=== PATIENT | male | born 1955 | race Caucasian/White ===

== ENCOUNTER 2018-07-25 08:33 | Observation (INO) | payer BC ==
[~2018-07-25] VITALS: Ht 167.6 cm; Wt 93.3 kg
[2018-07-25] MEDS ORDERED: SOD CHLORIDE 0.9% 500 ML IV STA (08:35)
--- NOTE | 2018-07-25 09:45 | ERD ---
ER Documentation Chief Complaint Chief Complaint FELT WEAK AND FAINT WHILE AT [employer]. NEAR SYNCOPE HPI 62-year-old male presents by paramedics for evaluation of a syncopal episode. Patient states he was in his usual state of health getting over a "flu" this week. While at [employer], he felt flushed warm and lightheaded and then passed out. He reports no chest pain palpitations or shortness of breath. He reports no headache, focal weakness or numbness. 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 Pre-hospital vital signs were reviewed. Pre-hospital diagnostic tests were reviewed. Upon arrival, patient has no complaints at this time. ROS All systems reviewed and are negative except as per history of present illness. Medications Home Meds Reported Medications Multivitamins* (Theragran*) 1 Tab Tab, 1 TAB PO DAILY, TAB 07/25/18 Lisinopril* (Lisinopril*) 2.5 Mg Tablet, 2.5 MG PO DAILY, #30 TAB 07/25/18 Atorvastatin* (Atorvastatin*) 80 Mg Tablet, 80 MG PO QHS, #30 TAB 07/25/18 Cholecalciferol* (Vitamin D3*) 1,000 Unit Tablet, 1000 UNIT PO DAILY, TAB 07/25/18 Aspirin (Low Dose Aspirin) 81 Mg Tablet.dr, 81 MG PO DAILY, #30 TAB 07/25/18 Carvedilol* (Coreg*) 3.125 Mg Tablet, 3.125 MG PO BID, #60 TAB 07/25/18 Ticagrelor* (Brilinta*) 90 Mg Tablet, 90 MG PO Q12, TAB 07/25/18 Allergies Allergies: Coded Allergies: No Known Allergy (Unverified , 07/25/18) FmHx Noncontributory for chief complaint Physical Exam Vitals Vital Signs Date Temp Pulse Resp B/P (MAP) Pulse Ox O2 O2 Flow FiO2 Time Delivery Rate 07/25/18 97.8 78 18 135/100 98 08:41 (112) Physical Exam GENERAL: The patient is well developed and appropriate for usual state of health in no apparent distress HEENT: Pupils equal, round, and reactive to light. EOMI. There is no scleral icterus. NECK: C-spine is soft and supple, there is no meningismus. There is no cervical lymphadenopathy. LUNGS: Clear to auscultation bilaterally. There are no rales, wheezes or rhonchi. HEART: Regular rate and rhythm, no murmurs, clicks, rubs or gallops. ABDOMEN: Soft, non-tender, non-distended. There are bowel sounds in all four quadrants. No rebound or guarding. EXTREMITIES: There is no peripheral cyanosis or edema. No focal swelling or erythema. NEURO: The patient moves all four extremities with 5/5 strength. Cranial nerves II - XII are intact. Normal gait. Alert and oriented SKIN: There is no apparent rash or petechiae. HEME/LYMPHATIC: There is no evidence of excessive bruising or lymphedema. PSYCHIATRIC: The patient does not appear anxious or depressed. Result Diagram: 07/25/18 0850 07/25/18 0850 Results 24 hrs Laboratory Tests Test 07/25/18 08:50 07/25/18 09:22 White Blood Count 5.9 10^3/ul Red Blood Count 5.67 10^6/ul Hemoglobin 15.8 g/dl Hematocrit 48.2 % Mean Corpuscular Volume 85.0 fl Mean Corpuscular Hemoglobin 27.9 pg Mean Corpuscular Hemoglobin Concent 32.8 g/dl Red Cell Distribution Width 14.3 % Platelet Count 276 10^3/UL Mean Platelet Volume 10.5 fl Immature Granulocytes % 0.300 % Neutrophils % 57.4 % Lymphocytes % 29.9 % Monocytes % 10.0 % Eosinophils % 1.7 % Basophils % 0.7 % Nucleated Red Blood Cells % 0.0 /100WBC Immature Granulocytes # 0.020 10^3/ul Neutrophils # 3.4 10^3/ul Lymphocytes # 1.8 10^3/ul Monocytes # 0.6 10^3/ul Eosinophils # 0.1 10^3/ul Basophils # 0.0 10^3/ul Nucleated Red Blood Cells # 0.0 10^3/ul Sodium Level 144 mmol/L Potassium Level 4.4 mmol/L Chloride Level 109 mmol/L Carbon Dioxide Level 26 mmol/L Anion Gap 9 Blood Urea Nitrogen 19 mg/dl Creatinine 1.54 mg/dl Est Glomerular Filtrat Rate mL/min 46 mL/min Glucose Level 109 mg/dl Calcium Level 10.2 mg/dl Troponin I < 0.012 ng/ml Bedside Glucose 82 mg/dL Current Medications Medications Dose Sig/Susana Start Time Status Last (Trade) Ordered Route PRN Stop Time Admin Dose Reason Admin Sodium 500 ml @ Q1H STAT 07/25/18 DC 07/25/18 Chloride 500 mls/hr IV 08:35 07/25/18 08:56 09:34 Procedures/MDM Patient was taken to a room, seen and evaluated. Comfort measures were initiated. Diagnostic tests were ordered and reviewed. 3 LEAD RHYTHM STRIP: Normal sinus rhythm without ectopy Charging Operator EK lead EKG reviewed by myself: Normal Sinus Rhythm Normal [place] and intervals Nonspecific ST and T wave changes without ST elevation Impression: Nonspecific EKG EKG repeated upon arrival: 12 lead EKG reviewed by myself: Normal Sinus Rhythm Normal [place] and intervals Nonspecific ST and T wave changes without ST elevation Impression: Nonspecific EKG, no significant change from the architectural designer EKG RADIOLOGY: Reviewed with the radiologist CONSULTATION: Hospitalist was notified for admission REEVALUATION: 0945: Diagnostic tests were appreciated and discussed with the patient. He remained comfortable and stable in appearance. After discussion with the patient and his family, decision was made to admit for observation. MEDICAL DECISION MAKIN-year-old male with an extensive history of heart disease and a an abnormal EKG presents to the emergency department after syncopal episode. Patient has no evidence of residual neurologic symptoms and I have no concerns for stroke. Patient has no evidence of anemia or significant electrolyte concerns. Given his history of heart disease and abnormal EKG, he will be admitted for cardiac observation to rule out significant dysrhythmia. Departure Diagnosis: Primary Impression: Syncope Condition: YAN Staley Jul 25, 2018 09:45
[2018-07-25] MEDS ORDERED: ASPI81TA52 PO (10:25)
[2018-07-25] MEDS ORDERED: CARV3.12 PO (10:25)
[2018-07-25] MEDS ORDERED: TICA90TA PO (10:25)
[2018-07-25] MEDS ORDERED: CHOL100062 PO (10:26)
[2018-07-25] MEDS ORDERED: MULTI PO (10:27)
[2018-07-25] MEDS ORDERED: ATOR-2 PO (10:27)
[2018-07-25] MEDS ORDERED: LISI2.5T59 PO (10:27)
[2018-07-25] MEDS ORDERED: ACETAMINOPHEN 325 MG TAB PO PRN (12:00)
[2018-07-25] MEDS ORDERED: HYDROCODONE/APAP (5/325) TAB PO PRN (12:00)
[2018-07-25] MEDS ORDERED: ONDANSETRON 4 MG INJ IV PRN (12:00)
[2018-07-25] MEDS ORDERED: NACL 0.9% 3 ML SYG IV SCH (12:00)
--- NOTE | 2018-07-25 12:09 | HP ---
Date/Time of Note Date/Time of Note DATE: 07/25/18 TIME: 12:09 Assessment/Plan VTE Prophylaxis Pharmacological prophylaxis: other Lines/Catheters IV Catheter Type (from Nrs): Saline Lock Assessment/Plan Hospital Course Objective Physical exam General: Patient is laying in bed and answers questions appropriately Mentation: Patient is alert and oriented 4, Head: Normocephalic atraumatic Eyes: EOMI, pupils reactive to light Neck: Supple, nontender, midline Respiratory: Clear to auscultation bilaterally Cardiovascular: regular rate, no obvious murmurs Gastrointestinal: non-tender to palpation, bowel sounds heard. Neurological: Moves all extremities spontaneously Skin: No new skin lesions Assessment and plan Syncope -Given patient's clinical picture, a vasovagal event is the most likely culprit, however to help rule out neurological causes CT of the head will be ordered -Echocardiogram -Carotid artery ultrasound -Unlikely seizure due to clinical story however will entertain the possibility, will consider EEG and neurology consultation if above studies are nonconclusive Coronary artery disease -Continue home meds, Brilinta, Coreg -Hold lisinopril for now for AK I versus CKD -Continue aspirin Dyslipidemia -Continue statin Acute kidney injury versus chronic kidney disease -Patient is status post nephrectomy for renal carcinoma -Patient states that he has a baseline kidney issues, however does not know his creatinine -Hold lisinopril for now -Mild hydration Disposition -Follow-up with results of the CT scan and other imaging, monitor, possible DC tomorrow if no need of neurology consultation. Result Diagram: 07/25/18 0850 07/25/18 0850 Results 24hrs Laboratory Tests Test 07/25/18 08:50 07/25/18 09:22 White Blood Count 5.9 Red Blood Count 5.67 Hemoglobin 15.8 Hematocrit 48.2 Mean Corpuscular Volume 85.0 Mean Corpuscular Hemoglobin 27.9 L Mean Corpuscular Hemoglobin Concent 32.8 Red Cell Distribution Width 14.3 Platelet Count 276 Mean Platelet Volume 10.5 H Immature Granulocytes % 0.300 Neutrophils % 57.4 Lymphocytes % 29.9 Monocytes % 10.0 Eosinophils % 1.7 Basophils % 0.7 Nucleated Red Blood Cells % 0.0 Immature Granulocytes # 0.020 Neutrophils # 3.4 Lymphocytes # 1.8 Monocytes # 0.6 Eosinophils # 0.1 Basophils # 0.0 Nucleated Red Blood Cells # 0.0 Sodium Level 144 Potassium Level 4.4 Chloride Level 109 Carbon Dioxide Level 26 Anion Gap 9 Blood Urea Nitrogen 19 Creatinine 1.54 H Est Glomerular Filtrat Rate mL/min 46 L Glucose Level 109 Calcium Level 10.2 Troponin I < 0.012 Bedside Glucose 82 HPI/ROS Admit Date/Time Admit Date/Time Hx of Present Illness Patient is a male with past medical history significant for coronary artery disease with 3 stents, dyslipidemia, history of renal carcinoma status post nephrectomy, who presents to [facility] for sudden onset syncope while at [employer] today. Patient and patient's is at bedside. Patient was apparently standing during [employer] service and then all of a sudden felt very flushed and sweating and then had a syncopal episode. Patient's at bedside said that patient had lost consciousness for a few minutes at most and had no shaking or other sequelae. Patient regained consciousness with no memory loss or no apparent postictal period. Patient currently feels well and has no acute complaints. Patient denies chest pain, shortness of breath, nausea, vomiting, abdominal pain, leg pain, headache, dizziness PMH/Family/Social Past Medical History Coded Allergies: No Known Allergy (Unverified , 07/25/18) Social History Smoking Status: Never smoker Exam/Review of Systems Vital Signs Vitals Vital Signs Date Temp Pulse Resp B/P (MAP) Pulse Ox O2 O2 Flow FiO2 Time Delivery Rate 07/25/18 97.8 78 18 135/100 98 08:41 (112) LATASHA GLASER Jul 25, 2018 12:09
[2018-07-25] MEDS: SOD CHLORIDE 0.9% 1,000 ML IV SCH (12:10)
[2018-07-25 16:58] VITALS: Ht 167.6 cm; Wt 93.3 kg
[2018-07-25 17:04] VITALS: BP 130/82; PULSE 64; RESP 16
[2018-07-25 17:24] VITALS: PULSE 67
--- NOTE | 2018-07-25 18:04 | NUR ---
EOSS: PT admitted from ER, AO x 4, VSS, SR on tele, ambulates, steady gait. NIHSS-0. Family at bedside.
[2018-07-25 19:53] VITALS: BP 125/72; PULSE 73; RESP 18
[2018-07-25 20:00] VITALS: PULSE 80
[2018-07-25] MEDS: TICAGRELOR 90 MG TABLET PO SCH (20:53)
[2018-07-25] MEDS ORDERED: ATORVASTATIN 80 MG TAB PO SCH (21:00)
[2018-07-25 23:35] VITALS: BP 107/62; PULSE 94; RESP 17
[2018-07-26] VITALS (7 sets, daily range): BP systolic 117–122; BP diastolic 71–76; PULSE 61–78; RESP 16–18
[2018-07-26] MEDS: TICAGRELOR 90 MG TABLET PO SCH (08:41)
[2018-07-26] MEDS ORDERED: CHOLECALCIFEROL 1,000 UNIT TAB PO SCH (09:00)
[2018-07-26] MEDS ORDERED: ASPIRIN (EC) 81 MG TAB PO SCH (09:00)
[2018-07-26] MEDS ORDERED: MULTIVITAMINS THERAPEUTIC TAB PO SCH (09:00)
[2018-07-26] MEDS: SOD CHLORIDE 0.9% 1,000 ML IV SCH (11:03)
--- NOTE | 2018-07-26 13:10 | DS ---
Date/Time of Note Date/Time of Note DATE: 07/26/18 TIME: 12:57 Discharge Summary Admission/Discharge Info Admit Date/Time Jul 25, 2018 at 11:37 Discharge Date/Time Discharge Diagnosis 1. Syncope, likely orthostatic, lifestyle modification 2. Coronary artery disease, s/p PCI/stent, stable, follow up with cardiology 3. CHF, systolic, chronic, on coreg, lisinopril, follow up with cardiology 4. Dyslipidemia, on statin 5. HTN, controlled 6. CKD, stage 3, stable 7. s/p right nephrectomy for renal cancer Patient Condition: Stable Procedures Echocardiogram Report Patient Name: VINCE FLEMING Gender: Male Date: 1955 Study Date: 26-Jul-2018 Placement Interviewer: Camilla Veronica RDCS Location: 61 Ref. Physician: LATASHA GLASER Quality: Technically Difficult Study Procedures: Transthoracic echocardiogram with complete 2D, M-Mode, and doppler examination. Indications: Syncope. 2D/M Mode Doppler Measurement Value Normal Ranges Measurement Value Normal Ranges LVIDd 2D 4.9 3.5 - 5.6 cm AV Peak Tristen 1.1 m/sec LVIDs 2D 4.0 2.1 - 4.1 cm AV Peak PG 5.0 mmHg LVPWd 2D 1.3 0.6 - 1.1 cm LVOT Peak Tristen 0.7 m/sec IVSd 2D 1.4 0.6 - 1.1 cm LVOT Peak PG 2.0 mmHg AoR Diam 2D 3.9 2.0 - 3.7 cm MV E Peak Tristen 0.5 m/sec LA/Ao 2D 1 0 - 1 MV A Peak Tristen 0.7 m/sec LA Dimen 2D 4.5 2.3 - 4.0 cm MV E/A 0.8 MV Decel Time 201 msec Lat E` Tristen 0.1 m/sec Lateral E/E` 9.8 Med E` Tristen 0.1 m/sec MV E/A 0.8 TR Peak Tristen 2.0 m/sec TR Peak PG 16.0 mmHg RVSP 26.0 mmHg RA Pressure 10.0 Findings Left Ventricle: Normal left ventricular cavity size. Moderate concentric left ventricular hypertrophy. Moderate left ventricular systolic dysfunction. Ejection fraction is visually estimated at 35 %. Tissue Doppler/Mitral Doppler indices are consistent with impaired relaxation (Stage I diastolic dysfunction). These segments of the LV are hypokinetic apex, apical septum, apical lateral segment, apical anterior segment and inferior apex segment. Right Ventricle: Normal right ventricular size. Normal right ventricular systolic function. Left Atrium: There is mild enlargement of left atrium. Right Atrium: The right atrium is normal in size. Mitral Valve: Mitral valve leaflets appear mildly thickened. Mild mitral annular calcification. Trace mitral regurgitation. Aortic Valve: No hemodynamically significant aortic stenosis by doppler. Aortic cusps appear mildly calcified. Mild aortic valve regurgitation. Tricuspid Valve: Normal appearance of the tricuspid valve. Estimated peak PA systolic pressure 19 mmHg. There is trace tricuspid regurgitation. Pulmonic Valve: Normal pulmonic valve appearance. Pericardium: Normal pericardium with no significant pericardial effusion. Aorta: Normal aortic root. IVC: Normal size and normal respiratory collapse consistent with normal right atrial pressure. Conclusions Normal left ventricular cavity size. Moderate concentric left ventricular hypertrophy. Moderate left ventricular systolic dysfunction. Ejection fraction is visually estimated at 35 %. Tissue Doppler/Mitral Doppler indices are consistent with impaired relaxation (Stage I diastolic dysfunction). These segments of the LV are hypokinetic apex, apical septum, apical lateral segment, apical anterior segment and inferior apex segment. There is mild enlargement of left atrium. Mitral valve leaflets appear mildly thickened. Mild mitral annular calcification. Trace mitral regurgitation. No hemodynamically significant aortic stenosis by doppler. Aortic cusps appear mildly calcified. Mild aortic valve regurgitation. Normal appearance of the tricuspid valve. Estimated peak PA systolic pressure 19 mmHg. There is trace tricuspid regurgitation. Normal size and normal respiratory collapse consistent with normal right atrial pressure. Normal pericardium with no significant pericardial effusion. Electronically Signed By: Dax Saha 26-Jul-2018 17:52:41 -0800 Patient Name: VINCE FLEMING Study Date: 26-Jul-2018 [id number] Dictated By: DAX SAHA MD Signed By: DAX SAHA MD Hospital Course Patient is a male with past medical history significant for coronary artery disease with 3 stents, dyslipidemia, history of renal carcinoma status post nephrectomy, who presents to [facility] for sudden onset syncope while at [employer] today. Patient and patient's is at bedside. Patient was apparently standing during [employer] service and then all of a sudden felt very flushed and sweating and then had a syncopal episode. Patient's at bedside said that patient had lost consciousness for a few minutes at most and had no shaking or other sequelae. Patient regained consciousness with no memory loss or no apparent postictal period. Patient currently feels well and has no acute complaints. Patient denies chest pain, shortness of breath, nausea, vomiting, abdominal pain, leg pain, headache, dizziness. Echocardiography with LVEF 35%, patient is on coreg and lisinopril. Clinically CHFZ is compensated without shortness of breath. Patient will follow up with PCP and cardiology for medications adjustment. Patient did not take breakfast but too his medications including lisinopril. Physical exam unremarkable. Carotid US no stenosis. CT head no acute changes. The syncope is considered hypotension from not eating breakfast, taking medications and he was at standing position. Patient is instructed to hold lisinopril if blood pressure is low or he is symptomatic with dizziness. Home Meds Reported Medications Multivitamins* (Theragran*) 1 Tab Tab, 1 TAB PO DAILY, TAB 07/25/18 Lisinopril* (Lisinopril*) 2.5 Mg Tablet, 2.5 MG PO DAILY, #30 TAB 07/25/18 Atorvastatin* (Atorvastatin*) 80 Mg Tablet, 80 MG PO QHS, #30 TAB 07/25/18 Cholecalciferol* (Vitamin D3*) 1,000 Unit Tablet, 1000 UNIT PO DAILY, TAB 07/25/18 Aspirin (Low Dose Aspirin) 81 Mg Tablet.dr, 81 MG PO DAILY, #30 TAB 07/25/18 Carvedilol* (Coreg*) 3.125 Mg Tablet, 3.125 MG PO BID, #60 TAB 07/25/18 Ticagrelor* (Brilinta*) 90 Mg Tablet, 90 MG PO Q12, TAB 07/25/18 Follow-up Plan PCP and cardiology in one week Primary Care Provider Not On Staff Doctor Pending Labs Laboratory Tests Test 07/26/18 05:27 White Blood Count 6.0 10^3/ul (4.8-10.8) Red Blood Count 5.00 10^6/ul (4.70-6.10) Hemoglobin 14.0 g/dl (14.0-18.0) Hematocrit 42.3 % (42.0-52.0) Mean Corpuscular Volume 84.6 fl (82.0-101.0) Mean Corpuscular Hemoglobin 28.0 pg (29.0-33.0) Mean Corpuscular Hemoglobin Concent 33.1 g/dl (32.0-37.0) Red Cell Distribution Width 14.6 % (11.5-14.5) Platelet Count 260 10^3/UL (140-415) Mean Platelet Volume 11.0 fl (7.4-10.4) Immature Granulocytes % 0.200 % (0.001-0.429) Neutrophils % 59.3 % (39.0-77.0) Lymphocytes % 28.2 % (15.0-51.0) Monocytes % 9.8 % (0.0-11.0) Eosinophils % 1.8 % (0.0-7.0) Basophils % 0.7 % (0.0-2.0) Nucleated Red Blood Cells % 0.0 /100WBC (0.0-0.0) Immature Granulocytes # 0.010 10^3/ul (0.0-0.031) Neutrophils # 3.6 10^3/ul (1.6-7.5) Lymphocytes # 1.7 10^3/ul (0.8-2.9) Monocytes # 0.6 10^3/ul (0.3-0.9) Eosinophils # 0.1 10^3/ul (0.0-0.5) Basophils # 0.0 10^3/ul (0.0-0.1) Nucleated Red Blood Cells # 0.0 10^3/ul (0.0-0.0) Sodium Level 142 mmol/L (135-144) Potassium Level 3.9 mmol/L (3.5-5.1) Chloride Level 107 mmol/L (97-110) Carbon Dioxide Level 22 mmol/L (21-31) Anion Gap 13 (5-13) Blood Urea Nitrogen 21 mg/dl (7-20) Creatinine 1.48 mg/dl (0.61-1.24) Est Glomerular Filtrat Rate mL/min 48 mL/min (>60) Glucose Level 94 mg/dl (70-220) Calcium Level 9.0 mg/dl (8.4-10.2) Magnesium Level 2.2 mg/dl (1.7-2.5) Total Bilirubin 1.3 mg/dl (0.2-1.3) Direct Bilirubin 0.00 mg/dl (0.00-0.20) Indirect Bilirubin 1.3 mg/dl (0-1.1) Aspartate Amino Transf (AST/SGOT) 27 IU/L (15-46) Alanine Aminotransferase (ALT/SGPT) 29 IU/L (13-69) Alkaline Phosphatase 97 IU/L (42-121) Total Protein 7.1 g/dl (6.1-8.1) Albumin 3.9 g/dl (3.3-4.9) Globulin 3.20 g/dl (1.3-3.2) Albumin/Globulin Ratio 1.21 Triglycerides Level 132 mg/dl (0-149) Cholesterol Level 144 mg/dl (100-200) LDL Cholesterol, Calculated 85 mg/dl HDL Cholesterol 33 mg/dl (30-78) Cholesterol/HDL Ratio 4.3 RATIO Thyroid Stimulating Hormone (TSH) 3.700 MIU/L (0.465-4.680) SEGUNDO VELAZQUEZ MD Jul 26, 2018 13:09
--- NOTE | 2018-07-26 14:15 | NUR ---
Discharge summary Discharge home stable, denies c/ o pain, no sob or distress noted. Pt amb w/ steady gait. NIH 0. Tele monitor removed, IV's removed. All needs were met. Pt left floor w/ nephew and son.
--- NOTE | 2018-07-26 14:57 | NUR ---
SW: ATTEMPTED VISIT SW attempted to meet with this patient for AHCD, however patient d/c'd before SW able to meet with him. No known issues/ concerns. SW remains available as needed throughout patient's treatment process.
--- NOTE | 2018-07-26 17:53 | RADRPT ---
Echocardiogram Report Patient Name: VINCE FLEMING Gender: Male Date: 1955 Study Date: 26-Jul-2018 [employer] Router: Camilla Veronica [facility] Location: [id number] Ref. Physician: LATASHA GLASER Quality: Technically Difficult Study Procedures: Transthoracic echocardiogram with complete 2D, M-Mode, and doppler examination. Indications: Syncope. 2D/M Mode Doppler Measurement Value Normal Ranges Measurement Value Normal Ranges LVIDd 2D 4.9 3.5 - 5.6 cm AV Peak Tristen 1.1 m/sec LVIDs 2D 4.0 2.1 - 4.1 cm AV Peak PG 5.0 mmHg LVPWd 2D 1.3 0.6 - 1.1 cm LVOT Peak Tristen 0.7 m/sec IVSd 2D 1.4 0.6 - 1.1 cm LVOT Peak PG 2.0 mmHg AoR Diam 2D 3.9 2.0 - 3.7 cm MV E Peak Tristen 0.5 m/sec LA/Ao 2D 1 0 - 1 MV A Peak Tristen 0.7 m/sec LA Dimen 2D 4.5 2.3 - 4.0 cm MV E/A 0.8 MV Decel Time 201 msec Lat E` Tristen 0.1 m/sec Lateral E/E` 9.8 Med E` Tristen 0.1 m/sec MV E/A 0.8 TR Peak Tristen 2.0 m/sec TR Peak PG 16.0 mmHg RVSP 26.0 mmHg RA Pressure 10.0 Findings Left Ventricle: Normal left ventricular cavity size. Moderate concentric left ventricular hypertrophy. Moderate left ventricular systolic dysfunction. Ejection fraction is visually estimated at 35 %. Tissue Doppler/Mitral Doppler indices are consistent with impaired relaxation (Stage I diastolic dysfunction). These segments of the LV are hypokinetic apex, apical septum, apical lateral segment, apical anterior segment and inferior apex segment. Right Ventricle: Normal right ventricular size. Normal right ventricular systolic function. Left Atrium: There is mild enlargement of left atrium. Right Atrium: The right atrium is normal in size. Mitral Valve: Mitral valve leaflets appear mildly thickened. Mild mitral annular calcification. Trace mitral regurgitation. Aortic Valve: No hemodynamically significant aortic stenosis by doppler. Aortic cusps appear mildly calcified. Mild aortic valve regurgitation. Tricuspid Valve: Normal appearance of the tricuspid valve. Estimated peak PA systolic pressure 19 mmHg. There is trace tricuspid regurgitation. Pulmonic Valve: Normal pulmonic valve appearance. Pericardium: Normal pericardium with no significant pericardial effusion. Aorta: Normal aortic root. IVC: Normal size and normal respiratory collapse consistent with normal right atrial pressure. Conclusions Normal left ventricular cavity size. Moderate concentric left ventricular hypertrophy. Moderate left ventricular systolic dysfunction. Ejection fraction is visually estimated at 35 %. Tissue Doppler/Mitral Doppler indices are consistent with impaired relaxation (Stage I diastolic dysfunction). These segments of the LV are hypokinetic apex, apical septum, apical lateral segment, apical anterior segment and inferior apex segment. There is mild enlargement of left atrium. Mitral valve leaflets appear mildly thickened. Mild mitral annular calcification. Trace mitral regurgitation. No hemodynamically significant aortic stenosis by doppler. Aortic cusps appear mildly calcified. Mild aortic valve regurgitation. Normal appearance of the tricuspid valve. Estimated peak PA systolic pressure 19 mmHg. There is trace tricuspid regurgitation. Normal size and normal respiratory collapse consistent with normal right atrial pressure. Normal pericardium with no significant pericardial effusion. Electronically Signed By: Sree Saha 26-Jul-2018 17:52:41 -0800 Patient Name: VINCE FLEMING Study Date: 26-Jul-2018 [id number]
== END 2018-07-26 14:15 | disposition home or self-care (01) ==
LOC: E/R 08:33 → 6WM 11:37
PROVIDERS: ADMIT Internal Medicine; ATTEND Internal Medicine
DX: R55 Syncope and collapse (principal); I25.10 Atherosclerotic heart disease of native coronary artery without angina pectoris; I13.0 Hypertensive heart and chronic kidney disease with heart failure and stage 1 through stage 4 chronic kidney disease, or unspecified chronic kidney disease; I50.22 Chronic systolic (congestive) heart failure; N18.3 Chronic kidney disease, stage 3 (moderate); E78.5 Hyperlipidemia, unspecified
CPT/HCPCS: 36415; 70450; 71045; 80048; 80053; 80061; 82962; 83735; 84443; 84484; 85025; 93005; 93306; 93880; 99285; G0378; J7030; J7040